=== PATIENT | female | born 1970 | race Caucasian/White ===

== ENCOUNTER 2018-04-14 08:52 | Emergency (ER) | payer MEDICAID ==
[~2018-04-14] VITALS: Ht 152.4 cm; Wt 75.0 kg
[2018-04-14 08:57] VITALS: BP 149/90
--- NOTE | 2018-04-14 09:05 | NUR ---
PT AMBULATES TO BED 5, REPORT GIVEN TO FLORA ROJAS
--- NOTE | 2018-04-14 09:10 | NUR ---
47F BIB SON WITH C/O PRURITUS RASH ON RT FACE THIS MORNING, TOOK AN UNLABELD "INSULIN" PILL LAST NIGHT RECIEVED AT A MARKET "[facility]" FOR HER SWOLLEN LT FOOT; NO SWELLING NOTED TO TONGUE, LIPS, OR FACE. CLEAR SPEECH. DENIES SOB, DIZZINESS, N/V/D; REDNESS, ODOR, AND SWELLING NOTED TO LEFT POSTERIOR FOOT. PT DENIES ANY FEVERS. PT IS AOX4 WITH STEADY GAIT. RR ARE EVEN AND UNLABORED. AWAITING ER MD PINA. PT CHANGED INTO GOWN AND PROVIDED WITH WARM BLANKET. WILL CONTINUE TO MONITOR.
--- NOTE | 2018-04-14 10:14 | NUR ---
ER MD GONSALEZ BY BEDSIDE EXAMINING PATIENT
[2018-04-14] MEDS ORDERED: CLINDAMYCIN 900 MG in DEXTROSE 5% 100 ML IV ONE (10:45)
[2018-04-14] MEDS ORDERED: CLINDAMYCIN 900 MG/6 ML VIAL IV ONE (11:06)
[2018-04-14 11:10] LABS: BASOPHILS # (AUTO) 0.1 K/uL (0.00-0.22); BASOPHILS % (AUTO) 0.9 % (0.0-2.0); EOSINOPHILS # (AUTO) 0.4 K/uL (0-0.4); EOSINOPHILS % (AUTO) 5.3 % (0.0-4.0); HEMOGLOBIN 13.9 g/dL (12.0-16.0); LYMPHOCYTES # (AUTO) 1.4 K/uL (2.5-16.5); LYMPHOCYTES % (AUTO) 16.6 % (20.5-51.1); MEAN CORPUSCULAR HEMOGLOBIN 28 pg (27-31); MEAN CORPUSCULAR HGB CONC 33 g/dL (33-37); MEAN CORPUSCULAR VOLUME 83.2 fL (80-94); MONOCYTES # (AUTO) 0.4 K/uL (0.8-1.0); MONOCYTES % (AUTO) 5.1 % (1.7-9.3); NEUTROPHILS # (AUTO) 6.1 K/uL (1.8-7.7); NEUTROPHILS % (AUTO) 72.1 % (42.2-75.2); PLATELET COUNT (AUTO) 349 K/uL (140-450); RED BLOOD CELL COUNT(AUTO) 5.05 MIL/uL (4.20-5.40); RED CELL DISTRIBUTION WIDTH 14.6 % (11.6-13.7); WHITE BLOOD COUNT (AUTO) 8.5 K/uL (4.8-10.8)
[2018-04-14] MEDS ORDERED: BACITRACIN OINT 500 UNITS/GM PKT TP ONE ×2 (11:13→13:24)
[2018-04-14 11:32] LABS: ANION GAP 13.3 (8-16); CARBON DIOXIDE 26.1 mmol/L (21-32); CREATININE 0.6 mg/dL (0.6-1.3); POTASSIUM 3.4 mmol/L (3.5-5.1); TOTAL BILIRUBIN 0.4 mg/dL (0.0-1.0)
[2018-04-14 11:33] LABS: APPEARANCE,URINE CLEAR (CLEAR); BILIRUBIN,URINE NEGATIVE (NEGATIVE); BLOOD, URINE NEGATIVE (NEGATIVE); COLOR,URINE YELLOW (YELLOW); LEUKOCYTE ESTERASE ,URINE NEGATIVE (NEGATIVE); NITRITE, URINE NEGATIVE (NEGATIVE); PH,URINE 6.5 (5.0-9.0); UGLUCOSE NEGATIVE (NEGATIVE)
--- NOTE | 2018-04-14 11:33 | NUR ---
iv antibiotics infusing without difficulty. patient updated on plan of care. patient verbalized understanding. son by bedside. vss. will continue to monitor.
[2018-04-14 11:39] LABS: RBC,URINE 0-5 (RARE) /HPF (0-5); WBC,URINE 0-5 (RARE) /HPF (0-5)
[2018-04-14 13:36] VITALS: BP 134/75
--- NOTE | 2018-04-14 13:37 | NUR ---
Patient discharged with v/s stable. Written and verbal after care instructions given and explained. Patient alert, oriented and verbalized understanding of instructions. Ambulatory with steady gait. All questions addressed prior to discharge. ID band removed. Patient advised to follow up with PMD. Rx of CLINDAMYCIN, BACITRACIN, AND MOTRIN given. Patient educated on indication of medication including possible reaction and side effects. Opportunity to ask questions provided and answered.
[2018-04-17] MEDS ORDERED: CLIN300C2 PO (11:16)
[2018-04-17] MEDS ORDERED: LACT1CAP63 PO (11:17)
[2018-04-17] MEDS ORDERED: ACET-2863 PO (11:18)
[2018-04-17] MEDS ORDERED: BACTO TOP (11:20)
== END 2018-04-14 13:37 | disposition home or self-care (01) ==
LOC: MED 08:52
DX: L03.116 Cellulitis of left lower limb (principal); E11.9 Type 2 diabetes mellitus without complications; I10 Essential (primary) hypertension
CPT/HCPCS: 36415; 73610; 80053; 81001; 85025; 90471; 90715; 96365; 99285; J3490; Q0092

== ENCOUNTER 2019-06-19 08:16 | Emergency (ER) | payer MEDICAID ==
[~2019-06-19] VITALS: Ht 162.6 cm; Wt 75.4 kg
[~2019-06-19 08:16] MED LIST: BACTO TOP; CLIN300C2 PO; HYDR-5123 PO; LACT1CAP63 PO
[2019-06-19 08:27] VITALS: BP 111/67
--- NOTE | 2019-06-19 08:45 | NUR ---
48 Y FEMALE BIB SON C/O N/V & DIZZINESS X THIS AM. ONE EPISODE OF EMESIS THIS AM, DENIES ANY BLOOD. PER SON, PT HAS NOT BEEN CONSISTENT WITH MEALS. +DYSURIA. NEURO INTACT: PUPILS PERRLA, EQUAL [employer]ER, FACIAL SYMMETRY, GCS 15. LMP 06/18/19. [id number]. CHADIAN SPEAKING, SON TRANSLATES. BED IS DOWN, LOCKED, BED RAIL X 1, ERMD TO SEE PT. MED HX: DENIES
--- NOTE | 2019-06-19 08:46 | NUR ---
DR DHILLON AT BEDSIDE
--- NOTE | 2019-06-19 08:46 | NUR ---
PT TACHY, WILL PUT ON MONITOR
--- NOTE | 2019-06-19 08:46 | NUR ---
ACCU CHECK 102, DR DHILLON NOTIFIED
--- NOTE | 2019-06-19 08:49 | NUR ---
URINE COLLECTED AND PLACED FOR LAB PICKUP
[2019-06-19] MEDS ORDERED: KETOROLAC 30 MG/ML VIAL IVP ONE (08:50)
[2019-06-19] MEDS ORDERED: NACL 0.9% 1,000 ML IV ONE (08:50)
[2019-06-19] MEDS ORDERED: ONDANSETRON 4 MG/2 ML VIAL IVP ONE (08:50)
--- NOTE | 2019-06-19 08:59 | NUR ---
XRAY AT BEDSIDE
[2019-06-19 09:23] LABS: APPEARANCE,URINE HAZY (CLEAR); BILIRUBIN,URINE 1+ (NEGATIVE); BLOOD, URINE 3+ (NEGATIVE); COLOR,URINE ORANGE (YELLOW); LEUKOCYTE ESTERASE ,URINE 2+ (NEGATIVE); NITRITE, URINE POSITIVE (NEGATIVE); UGLUCOSE NEGATIVE (NEGATIVE)
[2019-06-19 09:24] LABS: BASOPHILS % (AUTO) 0.2 % (0.0-2.0); HEMATOCRIT 37.5 % (36-48); HEMOGLOBIN 12.4 g/dL (12.0-16.0); LYMPHOCYTES # (AUTO) 0.5 K/uL (2.5-16.5); LYMPHOCYTES % (AUTO) 3.5 % (20.5-51.1); MEAN CORPUSCULAR HEMOGLOBIN 28 pg (27-31); MEAN CORPUSCULAR HGB CONC 33 g/dL (33-37); MEAN CORPUSCULAR VOLUME 84.8 fL (80-94); MONOCYTES # (AUTO) 0.6 K/uL (0.8-1.0); MONOCYTES % (AUTO) 4.1 % (1.7-9.3); NEUTROPHILS % (AUTO) 92.2 % (42.2-75.2); PLATELET COUNT (AUTO) 286 K/uL (140-450); RED BLOOD CELL COUNT(AUTO) 4.42 MIL/uL (4.20-5.40); RED CELL DISTRIBUTION WIDTH 13.8 % (11.6-13.7)
[2019-06-19 09:43] LABS: WHITE BLOOD COUNT (AUTO) 14.1 K/uL (4.8-10.8)
[2019-06-19 09:44] LABS: RBC,URINE 50-80 /HPF (0-5); WBC,URINE 80-100 /HPF (0-5)
--- NOTE | 2019-06-19 09:57 | NUR ---
PTS HR 105
[2019-06-19] MEDS ORDERED: cefTRIAXone 1,000 MG VIAL ONE (09:59)
[2019-06-19 10:00] LABS: ALBUMIN 3.6 g/dL (3.4-5.0); ANION GAP 12.5 (8-16); CARBON DIOXIDE 26.4 mmol/L (21-32); CREATININE 0.8 mg/dL (0.6-1.3); TOTAL BILIRUBIN 1.8 mg/dL (0.0-1.0)
[2019-06-19 10:09] LABS: POTASSIUM 2.9 mmol/L (3.5-5.1)
--- NOTE | 2019-06-19 10:09 | NUR ---
2.9 POTASSIUM, DR DHILLON NOTIFIED
[2019-06-19] MEDS ORDERED: POTASSIUM CHLORIDE 10 MEQ TABER PO ONE (10:10)
[2019-06-19 10:35] VITALS: BP 103/57
--- NOTE | 2019-06-19 10:35 | NUR ---
Patient discharged with v/s stable. Written and verbal after care instructions given and explained. Patient alert, oriented and verbalized understanding of instructions. Ambulatory with steady gait. All questions addressed prior to discharge. ID band removed. Patient advised to follow up with PMD. Rx of MACROBID AND NAPROSYN given. PT INSTRUCTED TO EAT MORE POTASSIUM RICH FOODS ANS STAY WELL HYDRATED. Patient educated on indication of medication including possible reaction and side effects. Opportunity to ask questions provided and answered. SON TRANSLATED
== END 2019-06-19 10:35 | disposition home or self-care (01) ==
LOC: MED 08:16
DX: N39.0 Urinary tract infection, site not specified (principal); E87.6 Hypokalemia; R74.0 Nonspecific elevation of levels of transaminase and lactic acid dehydrogenase [LDH]; R11.2 Nausea with vomiting, unspecified; R42 Dizziness and giddiness; Z79.899 Other long term (current) drug therapy
CPT/HCPCS: 36415; 71045; 80053; 81001; 81025; 83605; 85025; 87040; 87086; 93005; 96361; 96365; 96375; 99284; J0696; J1885; J2405; J7030; Q0092